=== PATIENT | male | born 1955 | race Caucasian/White ===

== ENCOUNTER 2016-08-26 06:28 | Outpatient (CLI) | payer BC ==
[2016-08-26] VITALS (11 sets, daily range): BP systolic 111–163; BP diastolic 80–111
[~2016-08-26] VITALS: Ht 177.8 cm; Wt 90.7 kg
[2016-08-26] MEDS ORDERED: IV 1/2 NORMAL SALINE 1,000 ML IV SCH ×2 (07:15→09:15)
[2016-08-26] MEDS ORDERED: LIDOCAINE 2% 20 ML VIAL. ONE (07:18)
[2016-08-26 07:31] LABS: HEMATOCRIT 38.6 % (39.0-53.0); HEMOGLOBIN 13.2 g/dL (13.0-17.5); RED BLOOD COUNT 4.45 x10^6/uL (4.30-5.70); RED CELL DISTRIBUTION WIDTH 12.8 % (11.5-14.5); WHITE BLOOD COUNT 6.9 x10^3/uL (4.0-11.0)
[2016-08-26] MEDS ORDERED: GEMF600T3 PO (07:39)
[2016-08-26] MEDS ORDERED: GLYB1TAB10 PO (07:39)
[2016-08-26] MEDS ORDERED: ASPI325T4 PO (07:39)
[2016-08-26] MEDS ORDERED: HYDR12.53 PO (07:39)
[2016-08-26] MEDS ORDERED: ESOM20TA PO (07:39)
[2016-08-26] MEDS ORDERED: BENA10TA2 PO (07:39)
[2016-08-26] MEDS ORDERED: MULT-245 PO (07:39)
[2016-08-26] MEDS ORDERED: METF500T4 PO (07:39)
[2016-08-26] MEDS ORDERED: OMEG1CAP38 PO (07:39)
[2016-08-26 07:40] LABS: CALCIUM 10.2 mg/dL (8.5-10.1); CREATININE 1.1 mg/dL (0.7-1.3); GFR 68.3; POTASSIUM 4.8 mmol/L (3.5-5.1)
[2016-08-26 07:41] LABS: INR 1.1 (0.8-1.1); PROTHROMBIN TIME PATIENT 13.1 SEC (11.7-14.0)
[2016-08-26] MEDS ORDERED: IOHEXOL 300 MG/ML 100ML VIAL. ONE (08:18)
[2016-08-26] MEDS ORDERED: VERAPAMIL 5 MG/2 ML VIAL. ONE (08:18)
[2016-08-26] MEDS ORDERED: NITROGLYCERIN 200 MCG/2 ML SYRINGE FOR CATH/VASC LAB. ONE (08:18)
[2016-08-26] MEDS ORDERED: HEPARIN for IV BOLUS 10,000 UNIT/10 ML VIAL. ONE (08:19)
[2016-08-26] MEDS ORDERED: MIDAZOLAM HCL/PF 5 MG/5 ML VIAL ONE (08:19)
[2016-08-26] MEDS ORDERED: FENTANYL PF 100 MCG/2 ML VIAL. ONE (08:19)
--- NOTE | 2016-08-26 08:32 | PDOC ---
MODERATE SEDATION ASSESSMENT RISKS/ALTERNATIVES Risks/Alternatives Risks and alternatives of this type of sedation and procedure discussed with: RISK/ALTERNATIVES: Patient H & P ON CHART H & P H & P on chart and reviewed for co-morbid conditions and appropriate labs. H&P ON CHART: Yes STATUS PREG STATUS ASSESSED: N/A MEDS/ALLERGIES REVIEWED Meds/Allergies Reviewed Medications and Allergies including time and route of recently administered narcotics and sedatives. MEDS/ALLERGIES REVIEWED: Yes ASA RATING ASA RATING: II AIRWAY ASSESSMENT Airway Assessment Airway patency, oral function limitations, presence of caps, crowns, dentures, partials, and ability to extend neck assessed. AIRWAY ASSESSMENT: Yes MALLAMPATI SCORE MALLAMPATI SCORE: II PRE-SEDATION ASSESSMENT PRE-SEDATION ASSESSMENT: Yes HANNAH LOPEZ MD Aug 26, 2016 08:32
[2016-08-26] MEDS ORDERED: VERAPAMIL 5 MG/2 ML VIAL. IART ONE (08:45)
[2016-08-26] MEDS ORDERED: LIDOCAINE 2% 20 ML VIAL. IJ ONE (08:45)
[2016-08-26] MEDS ORDERED: CONTRAST GIVEN MC PRN (08:45)
[2016-08-26] MEDS ORDERED: FENTANYL PF 100 MCG/2 ML VIAL. IV ONE (08:45)
[2016-08-26] MEDS ORDERED: NITROGLYCERIN 200 MCG/2 ML SYRINGE FOR CATH/VASC LAB. IART ONE (08:45)
[2016-08-26] MEDS ORDERED: IOHEXOL 300 MG/ML 100ML VIAL. IART ONE (08:45)
[2016-08-26] MEDS ORDERED: MIDAZOLAM HCL/PF 5 MG/5 ML VIAL IV ONE (08:45)
[2016-08-26] MEDS ORDERED: HEPARIN for IV BOLUS 10,000 UNIT/10 ML VIAL. IART ONE (08:45)
[2016-08-26] MEDS ORDERED: BIVALIRUDIN 250 MG VIAL IV ONE (08:54)
--- NOTE | 2016-08-26 10:43 | CARD ---
APPROVED REPORT Procedure(s) performed: Left Heart Catheterization, selective coronary angiography and left ventricul ography via the right transradial approach INDICATION The indication(s) include : positive stress test, unstable angina . PROCEDURE NARRATIVE After explaining the risks, benefits and alternative options, informed consent was obtained from arian ent. Patient was brought to the cardiac Packaging Line Attendant and right wrist was prepped and draped in the usual fashion after confirming a positive modified Johann's test. Arterial access was obtained in the [facility] t radial artery and a 6 Icelandic sheath was inserted. 6 Icelandic Dong catheter was used to perform erendira ective angiography of the left and right coronary arteries. 6 Icelandic pigtail catheter was used to pe rform left ventriculography. Patient tolerated the procedure well. Hemostasis was achieved using TR band. There were no immediate complications. The following findings were noted. FINDINGS 1. Hemodynamics: Left ventricular end-diastolic pressure of 10 mmHg. No pullback gradient across th e aortic valve. 2. Left ventriculography: Normal left ventricle systolic function with ejection fraction estimated at 60%. No significant mitral regurgitation seen. 3. Coronary angiography: a. The left main coronary artery arose from the left sinus of Valsalva, gave rise to the left anteri or descending and left circumflex arteries and did not show any significant stenosis. b. The left anterior descending artery showed 30% ostial segment stenosis, 90% stenosis in the midse gment I another 90% stenosis in the mid to distal segment. The first diagonal branch showed 40-50% st enosis in the midsegment. c. The left circumflex artery showed 90% stenosis in the first obtuse marginal branch and 90% stenos is in the second obtuse marginal branch. d. The right coronary artery was a large and dominant vessel arising from the right sinus of Valsalv a that showed 80% stenosis in the mid segment of the posterior descending branch and 90% stenosis in the proximal segment of the posterolateral branch. Conclusion 1. Severe three-vessel coronary artery disease 2. Normal left ventricle systolic function with ejection fraction estimated at 60% Recommendations Cardiothoracic surgery team consultation for possible coronary artery bypass surgery.
--- NOTE | 2016-08-26 11:36 | HP ---
ADMIT DATE: 08/26/2016 HISTORY OF PRESENT ILLNESS: This is a 61-year-old white male who I saw recently in the office after a gap of about a year. He was concerned that he was having some chest discomfort with exertion. He would notice it when he did any heavy work. He works as a funez. Wintertime is somewhat slow. However, he has a 3-year-old son with whom he interacts a lot. He gets discomfort in his chest when he runs around with this 3-year-old. The discomfort is relieved with rest, but not immediately. It is not associated with diaphoresis or shortness of breath. He just feels uncomfortable in his chest. He has had hypertension for the last several years. He also has diabetes mellitus. He does not see any other physician and he sees me very infrequently. His last hemoglobin A1c was 8.5. We did talk to him about insulin, but he did not want to take it. He then has not seen me for almost a year. He has had dyslipidemia. He especially has had metabolic syndrome with low HDL and high triglycerides, which we have been battling for the last several years. Actually, this is not as bad as when I first saw him. He has never smoked. There is no history of myocardial infarction. He had had a stress test about 15 years ago at which time there was an inferior wall defect. He underwent cardiac catheterization and it was normal. Subsequently, I have done a stress test in 2013, but this time, we did prone imaging and there was no defect in the inferior wall. There is no history of stroke or transient ischemic attacks. He has had no claudication. He has had no palpitations or swelling of his legs. He has had a large lipoma in his chest, which was removed and there has been no recurrence. He also has been complaining severely about right lower quadrant pain. He underwent extensive investigations in 2010. He had a CT, which was normal. He had an MRI, which showed no significant disease. He had an EGD and a colonoscopy, which were all normal. The etiology of this pain was never determined. He says over the next six years now he continues to have a mild discomfort off and on. Recently, the pain was very severe and he felt as though there is a big lump in his right lower quadrant. The pain subsequently subsided spontaneously. SOCIAL HISTORY: He does not take alcohol. MEDICATIONS: His present medications are: 1. Metformin 500 mg twice a day. 2. Gemfibrozil 600 mg twice a day. 3. Glyburide and metformin 5/500 twice a day. 4. Benazepril 40 mg a day. 5. Fish oil capsules. 6. Aspirin 325 mg a day. 7. Nexium 40 mg a day. 8. Hydrochlorothiazide 12.5 mg a day. FAMILY HISTORY: There is a strong family history of coronary artery disease. I took care of both of his parents. His mother had several episodes of myocardial infarction and open heart surgery twice, and finally of her heart. Father also had open heart surgery and severe coronary atherosclerosis. I do not take care of his brother, but I am told that his brother also has heart problems with coronary artery disease. His mother had diabetes mellitus and a very low HDL and very high triglyceride levels. PHYSICAL EXAMINATION: VITAL SIGNS: The heart rate is 80 per minute. The blood pressure is 130/80. LUNGS: Clear. CARDIOVASCULAR: The heart sounds are normal with no murmur or gallop. ABDOMEN: Soft. There is no local tenderness. In particular, there are no findings in the right lower quadrant. EXTREMITIES: There is no edema and the distal pulses are palpable. LABORATORY DATA: His last lab work in my office was a hemoglobin A1c of 8 two years ago. At that time, his BUN was 15 and creatinine was 1. Again, at that time, his total cholesterol was 161, HDL cholesterol was 24, triglycerides were 291 and LDL cholesterol was 79. More recent lab work showed a hemoglobin of 12.9, total WBC count of 8600. The BUN was 17 and creatinine was 1.24. The hemoglobin A1c was elevated to 8.7. The TSH was 1.4. The potassium was 4. The GFR was 63. He underwent myocardial perfusion imaging study, which showed a perfusion defect in the septum, a portion of the anterior wall and a portion of the lateral wall. It thus did not correspond to any one coronary artery territory, but there was definite perfusion defect with stress but not with rest. 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 He has been having chest discomfort with exertion. He would need to undergo coronary arteriograms to make sure that there is no underlying coronary artery disease. If he does have myocardial ischemia out in the field and collapses, he would be alone and have no witnesses. This being the case, even though the myocardial perfusion imaging study does not show a particular defect in one particular artery territory, it would be best to define his coronary artery anatomy now. He is being subjected to coronary arteriograms. We will do an echocardiogram and there will be no need to do LV gram. We will thus be conserving the amount of iodine he gets. His creatinine is 1.24. We will hydrate him prior to the procedure and of course withhold the metformin thereafter. MARJAN VENEGAS MD DR: FARSHAD/rosa JOB#: [id number] / [id number]
== END 2016-08-26 14:45 | disposition home or self-care (01) ==
LOC: CCL 06:28
PROVIDERS: ATTEND Specialist
DX: I25.110 Atherosclerotic heart disease of native coronary artery with unstable angina pectoris (principal); I10 Essential (primary) hypertension; E11.9 Type 2 diabetes mellitus without complications; E78.5 Hyperlipidemia, unspecified; Z82.49 Family history of ischemic heart disease and other diseases of the circulatory system; Z83.3 Family history of diabetes mellitus
CPT/HCPCS: 36415; 80048; 85027; 85610; 93458; C1769; C1892; J2250; J3010; J3490; Q9967